=== PATIENT | male | born 1980 | race Caucasian/White ===

== ENCOUNTER 2020-11-20 15:59 | Observation (INO) | payer BC, OTHER ==
[2020-11-20] MEDS ORDERED: PROTONIX 40 MG IV IV ONE ×2 (16:16→16:19)
[2020-11-20] MEDS ORDERED: MORPHINE SULFATE 4 MG INJ IV ONE (16:16)
[2020-11-20] MEDS ORDERED: Sodium Chloride 0.9% 1000 ML 1,000 ML IV STA (16:16)
[2020-11-20] MEDS ORDERED: Zofran 4 MG/2 ML VIAL IV ONE (16:16)
[2020-11-20] MEDS ORDERED: Zofran 4 MG/2 ML VIAL ONE (16:19)
[2020-11-20] MEDS ORDERED: MORPHINE SULFATE 4 MG INJ ONE (16:19)
[2020-11-20] MEDS ORDERED: Sodium Chloride 0.9% 1000 ML 1,000 ML ONE (16:19)
--- NOTE | 2020-11-20 16:22 | ERPHSYRPT ---
- History of Present Illness Time Seen by Provider: 11/20/20 16:04 Historian: patient Exam Limitations: no limitations Physician History: 40 years old male with history of GERD not on any medications tobacco abuse presented in the ER with sudden onset upper abdominal pain moderate to severe sharp and now having generalized pain with nausea and multiple episodes of nonp rojectile, nonbilious vomiting without hematemesis. Denies any constipation or diarrhea no fever or chills reported. Timing/Duration: today, constant, sudden, worse Activities at Onset: rest Quality: sharpness Abdominal Pain Onset Location: generalized abdomen Pain Radiation: no radiation Severity of Pain-Max: severe Severity of Pain-Current: severe Modifying Factors: Improves With: rest. Worsens With: movement, palpation, vomiting Associated Symptoms: nausea, vomiting Previous symptoms: no prior history Allergies/Adverse Reactions: No Known Drug Allergies Allergy (Unverified 11/13/14 08:43) Home Medications: armodafiniL [Armodafinil] 200 mg PO DAILY 11/20/20 [History] Hx Tetanus, Diphtheria Vaccination/Date Given: Yes (up to date) Hx Influenza Vaccination/Date Given: No Hx Pneumococcal Vaccination/Date Given: No - Review of Systems Constitutional: No Symptoms Eyes: No Symptoms Ears, Nose, & Throat: No Symptoms Respiratory: No Symptoms Cardiac: No Symptoms Abdominal/Gastrointestinal: Abdominal Pain, Nausea, Vomiting Genitourinary Symptoms: No Symptoms Musculoskeletal: No Symptoms Skin: No Symptoms Neurological: No Symptoms Psychological: No Symptoms Endocrine: No Symptoms Hematologic/Lymphatic: No Symptoms Immunological/Allergic: No Symptoms - Past Medical History Pertinent Past Medical History: Yes Musculoskeletal History: Other (See history of present illness) GI Medical History: GERD - Past Surgical History Past Surgical History: Yes Gastrointestinal: Appendectomy Musculoskeletal: Orthopedic Surgery - Social History Smoking Status: Current every day smoker How long have you smoked: 15 Exposure to second hand smoke: Yes Drug Use: none Patient Lives Alone: No Significant Family History: no pertinent family hx - Nursing Vital Signs Nursing Vital Signs: Initial Vital Signs Temperature 97.6 F 11/20/20 16:17 Pulse Rate 91 H 11/20/20 16:17 Respiratory Rate 16 11/20/20 16:17 Blood Pressure 143/107 11/20/20 16:17 O2 Sat by Pulse Oximetry 98 11/20/20 16:17 Pain Scale Pain Intensity 10 - Physical Exam General Appearance: no apparent distress, alert Eye Exam: PERRL/EOMI, eyes nml inspection Ears, Nose, Throat Exam: normal ENT inspection, pharynx normal Neck Exam: normal inspection, non-tender, supple, full range of motion Respiratory Exam: normal breath sounds, lungs clear Cardiovascular Exam: regular rate/rhythm, normal heart sounds Gastrointestinal/Abdomen Exam: soft, normal bowel sounds, tenderness (Generalized with guarding without rebound) Back Exam: normal inspection, normal range of motion Extremity Exam: normal inspection, normal range of motion, pelvis stable Neurologic Exam: alert, oriented x 3, cooperative Skin Exam: normal color SpO2 Interpretation: normal SpO2: 98 O2 Delivery: Room Air Ordered Tests: Medication Summary Generic Name Dose Route Start Last Admin Trade Name Freq PRN Reason Stop Dose Admin Acetaminophen 650 mg 11/21/20 08:31 11/21/20 09:11 Tylenol 325 Mg PO 12/21/20 08:30 650 mg Q6H PRN PRN Administration PAIN AND/OR FEVER Hydrocodone Bitart/Acetaminophen 1 tab 11/21/20 21:14 11/22/20 12:42 [place] 5/325 Mg PO 11/26/20 21:13 1 tab Q4H PRN PRN Administration PAIN Potassium Chloride/Dextrose/Sod Cl 1,000 mls @ 90 mls/hr 11/21/20 21:30 11/21/20 22:27 D5w/0.45ns W/ 20meq Kcl 1000 Ml IV 12/21/20 21:29 90 mls/hr .Q11H7M JOSHUA Administration Cefoxitin Sodium 1 g in 50 mls @ 100 mls/hr 11/21/20 22:00 11/22/20 05:06 Mefoxin 1 Gm/ D5w 50 Ml IV 11/22/20 14:29 100 mls/hr Q8H JOSHUA Administration Miscellaneous Information 1 each 11/22/20 07:30 Medication Intervention PO 12/22/20 07:29 .RN TO CHECK ON JOSHUA Morphine Sulfate 2 mg 11/21/20 21:11 11/22/20 06:13 Morphine Sulfate 2 Mg Inj IV 11/26/20 21:10 2 mg Q2H PRN PRN Administration PAIN Ondansetron HCl 4 mg 11/20/20 20:43 Zofran 4 Mg/2 Ml Vial IV 12/20/20 20:42 Q6H PRN PRN NAUSEA/VOMITING Discontinued Medications Generic Name Dose Route Start Last Admin Trade Name Freq PRN Reason Stop Dose Admin Bupivacaine HCl Confirm 11/21/20 17:42 Sensorcaine 0.25% 10 Ml Administered 11/21/20 17:43 Dose 10 ml .ROUTE .STK-MED ONE Dexamethasone Sodium Phosphate Confirm 11/21/20 17:57 Decadron 4 Mg Inj Administered 11/21/20 17:58 Dose 8 mg .ROUTE .STK-MED ONE Fentanyl Citrate Confirm 11/21/20 17:03 Sublimaze 100 Mcg/2 Ml Administered 11/21/20 17:04 Dose 100 mcg .ROUTE .STK-MED ONE Hydromorphone HCl Confirm 11/21/20 18:59 Hydromorphone 1 Mg/Ml Injection Administered 11/21/20 19:00 Dose 1 mg .ROUTE .STK-MED ONE Sodium Chloride 1,000 mls @ 999 mls/hr 11/20/20 16:16 11/20/20 17:21 Sodium Chloride 0.9% 1000 Ml IV 11/20/20 17:16 Infused .Q1H1M STA Infusion Sodium Chloride Confirm 11/20/20 16:19 Sodium Chloride 0.9% 1000 Ml Administered 11/20/20 16:20 Dose 1,000 mls @ ud .ROUTE .STK-MED ONE Piperacillin Sod/Tazobactam 100 mls @ 200 mls/hr 11/20/20 18:50 11/20/20 19:02 Sod 3.375 gm/ Sodium Chloride IV 11/20/20 19:19 200 mls/hr STAT ONE Administration Sodium Chloride Confirm 11/20/20 19:00 Sodium Chloride 100ml Mini-Bag Plus Administered 11/20/20 19:01 Dose 100 mls @ ud IV .STK-MED ONE Potassium Chloride/Sodium Chloride 1,000 mls @ 125 mls/hr 11/20/20 20:43 11/21/20 07:31 Sodium Chloride 0.9% W/ 20 Meq Kcl/Liter IV 12/20/20 20:42 125 mls/hr .Q8H JOSHUA Administration Piperacillin Sod/Tazobactam 100 mls @ 200 mls/hr 11/21/20 00:00 11/22/20 06:05 Sod 3.375 gm/ Sodium Chloride IV 11/24/20 00:00 200 mls/hr Q6HT JOSHUA Administration Sodium Chloride Confirm 11/21/20 00:23 Sodium Chloride 100ml Mini-Bag Plus Administered 11/21/20 00:24 Dose 100 mls @ ud IV .STK-MED ONE Sodium Chloride Confirm 11/21/20 05:16 Sodium Chloride 100ml Mini-Bag Plus Administered 11/21/20 05:17 Dose 100 mls @ ud IV .STK-MED ONE Lactated Ringer's 1,000 mls @ 50 mls/hr 11/21/20 15:00 11/21/20 15:11 Lactated Ringers IV 11/22/20 00:06 50 mls/hr .Q20H JOSHUA Administration Cefoxitin Sodium 2 gm in 50 mls @ 50 mls/hr 11/21/20 16:00 11/21/20 22:27 Mefoxin 2 Gm Premix IV 11/24/20 15:59 50 mls/hr ONCALLTOOR JOSHUA Administration Lactated Ringer's Confirm 11/21/20 17:43 Lactated Ringers Administered 11/21/20 17:44 Dose 1,000 mls @ ud IV .STK-MED ONE Ketorolac Tromethamine Confirm 11/21/20 18:52 Toradol 30 Mg Injection Administered 11/21/20 18:53 Dose 30 mg .ROUTE .STK-MED ONE Ketorolac Tromethamine Confirm 11/21/20 19:14 Toradol 30 Mg Injection Administered 11/21/20 19:15 Dose 30 mg .ROUTE .STK-MED ONE Lidocaine HCl Confirm 11/21/20 17:03 Xylocaine-Mpf 2% 5 Ml Vial Administered 11/21/20 17:04 Dose 5 ml .ROUTE .STK-MED ONE Morphine Sulfate 4 mg 11/20/20 16:16 11/20/20 16:24 Morphine Sulfate 4 Mg Inj IV 11/20/20 16:17 4 mg STAT ONE Administration Morphine Sulfate Confirm 11/20/20 16:19 Morphine Sulfate 4 Mg Inj Administered 11/20/20 16:20 Dose 4 mg .ROUTE .STK-MED ONE Morphine Sulfate 4 mg 11/20/20 20:43 11/22/20 00:43 Morphine Sulfate 4 Mg Inj IV 11/25/20 20:42 4 mg Q4H PRN PRN Administration PAIN Morphine Sulfate Confirm 11/21/20 18:59 Morphine Sulfate 10 Mg/Ml Administered 11/21/20 19:00 Dose 10 mg .ROUTE .STK-MED ONE Ondansetron HCl 4 mg 11/20/20 16:16 11/20/20 16:22 Zofran 4 Mg/2 Ml Vial IV 11/20/20 16:17 4 mg STAT ONE Administration Ondansetron HCl Confirm 11/20/20 16:19 Zofran 4 Mg/2 Ml Vial Administered 11/20/20 16:20 Dose 4 mg .ROUTE .STK-MED ONE Ondansetron HCl Confirm 11/21/20 17:57 Zofran 4 Mg/2 Ml Vial Administered 11/21/20 17:58 Dose 4 mg .ROUTE .STK-MED ONE Pantoprazole Sodium 40 mg 11/20/20 16:16 11/20/20 16:25 Protonix 40 Mg Iv IV 11/20/20 16:17 40 mg STAT ONE Administration Pantoprazole Sodium Confirm 11/20/20 16:19 Protonix 40 Mg Iv Administered 11/20/20 16:20 Dose 40 mg IV .STK-MED ONE Piperacillin Sod/Tazobactam Sod Confirm 11/20/20 19:00 Zosyn 3.375 Gm Vial Administered 11/20/20 19:01 Dose 3.375 gm IV .STK-MED ONE Piperacillin Sod/Tazobactam Sod Confirm 11/21/20 00:23 Zosyn 3.375 Gm Vial Administered 11/21/20 00:24 Dose 3.375 gm IV .STK-MED ONE Piperacillin Sod/Tazobactam Sod Confirm 11/21/20 05:16 Zosyn 3.375 Gm Vial Administered 11/21/20 05:17 Dose 3.375 gm IV .STK-MED ONE Prochlorperazine Edisylate Confirm 11/21/20 19:14 Compazine 10 Mg/2 Ml Administered 11/21/20 19:15 Dose 10 mg .ROUTE .STK-MED ONE Propofol Confirm 11/21/20 17:03 Diprivan 200 Mg/20 Ml Administered 11/21/20 17:04 Dose 200 mg IV .STK-MED ONE Rocuronium [place] Confirm 11/21/20 17:03 Zemuron 100 Mg/10 Ml Administered 11/21/20 17:04 Dose 40 mg .ROUTE .STK-MED ONE Rocuronium [place] Confirm 11/21/20 18:34 Zemuron 100 Mg/10 Ml Administered 11/21/20 18:35 Dose 30 mg .ROUTE .STK-MED ONE Sugammadex Sodium Confirm 11/21/20 18:39 [place] 200mg/2ml Administered 11/21/20 18:40 Dose 200 mg IV .STK-MED ONE Lab/Rad Data: Laboratory Result Diagrams 11/20/20 16:34 11/20/20 16:34 Laboratory Results 11/20/20 11/20/20 11/20/20 Range/Units 19:20 19:20 18:28 WBC (4.0-10.5) K/mm3 RBC (4.1-5.6) M/mm3 Hgb (12.5-18.0) gm/dl Hct (42-50) % MCV (78-100) fl MCH (26-32) pg MCHC (32-36) g/dl RDW (11.5-14.0) % Plt Count (150-450) K/mm3 MPV (7.5-11.0) fl Gran % (36.0-66.0) % Eos # (Auto) (0-0.5) Absolute Lymphs (auto) (1.0-4.6) Absolute Monos (auto) (0.0-1.3) Lymphocytes % (24.0-44.0) % Monocytes % (0.0-12.0) % Eosinophils % (0.00-5.0) % Basophils % (0.0-0.4) % Absolute Granulocytes (1.4-6.9) Basophils # (0-0.4) Sodium (137-145) mmol/L Potassium (3.5-5.1) mmol/L Chloride (98-107) mmol/L Carbon Dioxide (22-30) mmol/L Anion Gap (5-15) MEQ/L BUN (9-20) mg/dL Creatinine (0.66-1.25) mg/dL Estimated GFR ML/MIN Glucose (74-106) mg/dL Calcium (8.4-10.2) mg/dL Total Bilirubin (0.2-1.3) mg/dL AST (17-59) U/L ALT (0-50) U/L Alkaline Phosphatase (38-126) U/L Troponin I < 0.012 (0.000-0.034) ng/mL Serum Total Protein (6.3-8.2) g/dL Albumin (3.5-5.0) g/dL Lipase (23-300) U/L Urine Color YELLOW (YELLOW) Urine Appearance CLEAR (CLEAR) Urine pH 5.0 (5-6) Ur Specific [place] >1.060 (1.005-1.025) Urine Protein NEGATIVE (Negative) Urine Ketones NEGATIVE (NEGATIVE) Urine Blood NEGATIVE (0-5) Duncan/ul Urine Nitrite NEGATIVE (NEGATIVE) Urine Bilirubin NEGATIVE (NEGATIVE) Urine Urobilinogen NEGATIVE (0-1) mg/dL Ur Leukocyte Esterase NEGATIVE (NEGATIVE) Urine WBC (Auto) NONE (0-5) /HPF Urine RBC (Auto) NONE (0-2) /HPF U Epithel Cells (Auto) NONE (FEW) /HPF Urine Bacteria (Auto) NONE (NEGATIVE) /HPF Urine Mucus (Auto) SLIGHT (NEGATIVE) /HPF Urine Culture Reflexed NO (NO) Urine Glucose NEGATIVE (NEGATIVE) mg/dL SARS-CoV-2 (PCR) NEGATIVE (NEGATIVE) 11/20/20 11/20/20 11/20/20 Range/Units 16:34 16:34 16:34 WBC 10.1 (4.0-10.5) K/mm3 RBC 4.84 (4.1-5.6) M/mm3 Hgb 16.5 (12.5-18.0) gm/dl Hct 46.6 (42-50) % MCV 96.3 (78-100) fl MCH 34.1 H (26-32) pg MCHC 35.4 (32-36) g/dl RDW 13.3 (11.5-14.0) % Plt Count 247 (150-450) K/mm3 MPV 10.0 (7.5-11.0) fl Gran % 71.1 H (36.0-66.0) % Eos # (Auto) 0.28 (0-0.5) Absolute Lymphs (auto) 2.03 (1.0-4.6) Absolute Monos (auto) 0.57 (0.0-1.3) Lymphocytes % 20.1 L (24.0-44.0) % Monocytes % 5.7 (0.0-12.0) % Eosinophils % 2.8 (0.00-5.0) % Basophils % 0.3 (0.0-0.4) % Absolute Granulocytes 7.17 H (1.4-6.9) Basophils # 0.03 (0-0.4) Sodium 142 (137-145) mmol/L Potassium 4.3 (3.5-5.1) mmol/L Chloride 112 H (98-107) mmol/L Carbon Dioxide 20 L (22-30) mmol/L Anion Gap 13.9 (5-15) MEQ/L BUN 12 (9-20) mg/dL Creatinine 0.75 (0.66-1.25) mg/dL Estimated GFR > 60.0 ML/MIN Glucose 120 H (74-106) mg/dL Calcium 9.4 (8.4-10.2) mg/dL Total Bilirubin 0.50 (0.2-1.3) mg/dL AST 29 (17-59) U/L ALT 29 (0-50) U/L Alkaline Phosphatase 59 (38-126) U/L Troponin I < 0.012 (0.000-0.034) ng/mL Serum Total Protein 7.6 (6.3-8.2) g/dL Albumin 4.7 (3.5-5.0) g/dL Lipase 190 (23-300) U/L Urine Color (YELLOW) Urine Appearance (CLEAR) Urine pH (5-6) Ur Specific [place] (1.005-1.025) Urine Protein (Negative) Urine Ketones (NEGATIVE) Urine Blood (0-5) [place]/ul Urine Nitrite (NEGATIVE) Urine Bilirubin (NEGATIVE) Urine Urobilinogen (0-1) mg/dL Ur Leukocyte Esterase (NEGATIVE) Urine WBC (Auto) (0-5) /HPF Urine RBC (Auto) (0-2) /HPF U Epithel Cells (Auto) (FEW) /HPF Urine Bacteria (Auto) (NEGATIVE) /HPF Urine Mucus (Auto) (NEGATIVE) /HPF Urine Culture Reflexed (NO) Urine Glucose (NEGATIVE) mg/dL SARS-CoV-2 (PCR) (NEGATIVE) - Progress Progress: improved, pain not gone completely, re-examined Progress Note: 11/20/20 18:17 40 years old is evaluated for abdominal pain, given fluid bolus and morphine, reevaluation feeling better. Lab work grossly unremarkable. CT showed 1.4 cm stone at the neck of gallbladder without any significant wall thickening/pericholecystic fluid and also has questionable partial small bowel obstruction. Will talk to general surgery artificial insemination technician and patient would be admitted as per their recommendations 11/20/20 18:45 d/w Dr. Volodymyr Jenkins general surgery, reviewed history, lab and CT findings, recommended n.p.o., holding off on NG tube for now. Obtaining ultrasound in the morning and will give dose of Zosyn. Patient discussed with Dr. Axel sherwood, reviewed history and general surgery recommendations and patient is accepted for admission. Discussed with Dr.: Marinelli Counseled pt/family regarding: lab results, diagnosis, rad results - Departure Clinical Impression: Acute cholecystitis, Partial small bowel obstruction Condition: Stable Critical Care Time: No
[2020-11-20 16:50] LABS: ALBUMIN 4.7 g/dL (3.5-5.0); ALKALINE PHOSPHATASE 59 U/L (38-126); ANION GAP 13.9 MEQ/L (5-15); BLOOD UREA NITROGEN 12 mg/dL (9-20); CHLORIDE 112 mmol/L (98-107); Calcium 9.4 mg/dL (8.4-10.2); Carbon Dioxide 20 mmol/L (22-30); Creatinine 1 0.75 mg/dL (0.66-1.25); EST GLOMERULAR FILTRATION RATE > 60.0 ML/MIN; Glucose 120 mg/dL (74-106); LIPASE 190 U/L (23-300); Potassium 4.3 mmol/L (3.5-5.1); SGOT/AST 29 U/L (17-59); SGPT/ALT 29 U/L (0-50); SODIUM 142 mmol/L (137-145); Total Protein 7.6 g/dL (6.3-8.2)
[2020-11-20 16:52] LABS: Absolute Neutrophil Ct (ANC) 7.17 (1.4-6.9); BASOPHIL % 0.3 % (0.0-0.4); Basophil (Absolute #) 0.03 (0-0.4); Eosinophil % 2.8 % (0.00-5.0); Eosinophil (Absolute #) 0.28 (0-0.5); Hematocrit 46.6 % (42-50); Hemoglobin 16.5 gm/dl (12.5-18.0); Lymphocyte (Absolute #) 2.03 (1.0-4.6); Lymphocytes % 20.1 % (24.0-44.0); Mean Cell Volume 96.3 fl (78-100); Mean Corpuscular Hemoglobin 34.1 pg (26-32); Mean Corpuscular Hgb Concent. 35.4 g/dl (32-36); Monocyte (Absolute #) 0.57 (0.0-1.3); Monocytes % 5.7 % (0.0-12.0); Neutrophil % 71.1 % (36.0-66.0); Platelet Count 247 K/mm3 (150-450); Red Blood Count 4.84 M/mm3 (4.1-5.6); Red Cell Distribution Width 13.3 % (11.5-14.0); White Blood Count 10.1 K/mm3 (4.0-10.5)
--- NOTE | 2020-11-20 18:06 | XRAY ---
Exam: CT of the abdomen and pelvis with IV contrast from 11/20/2020. CTDI: 5.30 mGy Comparison: None. Indication: 40-year-old male with lower mid to left-sided abdominal pain and left flank pain; some vomiting. Also, upper abdominal pain. The patient gives a history of prior appendectomy. Technique: Post-IV contrast axial images were obtained through the abdomen and pelvis during automated injection of 80 cc of Isovue-370 contrast material. Reconstructed coronal and sagittal images were created and reviewed. Findings: The visualized lung bases reveal minimal posterior dependent atelectatic changes at the right lung base. Otherwise, the lung bases appear clear. The heart size is normal. The liver appears of normal size and uniform attenuation. No hepatic mass or intrahepatic biliary duct distention is seen. The gallbladder is distended and there appears to be a calcium rimmed density within the gallbladder neck which could represent an impacted gallstone. Again, I do not see definite biliary duct distention. Correlate clinically. This calcium rimmed intraluminal density is best seen on axial image #23, coronal image #71, and sagittal image #81. It measures about 1.4 cm in width. The spleen appears of unremarkable size and reveals no focal mass. The pancreas and adrenal glands appear unremarkable. The kidneys appear of normal size and reveal no calculi or hydronephrosis. Both kidneys function on delayed images. No solid renal mass is seen. The ureters appear of normal diameter and reveal no ureterolith. No urinary bladder stone is seen. The abdominal aorta is of normal diameter. No abdominal aortic aneurysm or abnormal retroperitoneal lymphadenopathy is seen. A few very small nonspecific periaortic lymph nodes are seen. There is no free intraperitoneal air or bowel containing ventral hernia. There is minimal protrusion of intraperitoneal fat into the subcutaneous fat at the level of the umbilicus in midline sagittal image #94. The appendix is not seen consistent with the patient's history of prior appendectomy. Scattered stool is seen throughout the colon. There is a suggestion of some minimal diverticulosis within the proximal sigmoid colon without evidence of diverticulitis. There is either a pill density or calcification within the ascending colon. There also appears to be a pill or calcification within the splenic flexure on axial image #21 and the proximal descending colon on axial image #28. In addition, the small bowel appears mildly abnormal. There are a few mildly dilated fluid-filled small bowel loops within the lower abdomen measuring up to a maximum of 2.7 cm in diameter. Other collapsed small bowel loops are seen within the lower abdomen and upper pelvis measuring only about 1.0 cm in diameter. Furthermore, I see some feces-like material within the small bowel. For example, see coronal image #33. The small bowel feces sign has been described with subacute or low grade small bowel obstruction. Consider adhesions in this case. Again, I see no evidence of free intraperitoneal air. The urinary bladder appears grossly unremarkable. The seminal vesicles appear symmetric. The prostate gland measures a maximum of 5.0 cm in width and 3.2 cm in AP dimension on axial image #84. No free fluid is seen within the pelvis. The skeleton reveals no acute fracture or aggressive bone lesion. There appear to be 6 [id number] lumbar vertebra with L6 representing a transitional vertebra which is fused with the upper left side of the sacrum. Mild facet joint arthropathy is seen at L5L6 and L6S1 on the right. There appears to be moderate loss of the anterior vertebral body height of L1 which appears to be chronic. Mild kyphosis is seen centered at L1. Some anterior vertebral endplate spurs are seen within the upper and mid lumbar spine. Impression: 1. There appears to be a 1.4 cm in diameter calcium rimmed stone within the gallbladder neck which may be impacted. However, I do not see any significant gallbladder distention or biliary duct obstruction. 2. Abnormal lower abdominal and upper pelvic small bowel worrisome for subacute or early low-grade small bowel obstruction. See above. Consider adhesions. The patient is status post appendectomy. 3. Minimal proximal sigmoid colon diverticulosis without evidence of acute diverticulitis. 4. No other acute process is seen within the abdomen or pelvis. 5. Skeletal findings, as discussed above.
[2020-11-20] MEDS ORDERED: Zosyn 3.375 GM Vial 3.375 GM in Sodium Chloride 100ML MINI-BAG PLUS 100 ML IV ONE (18:50)
[2020-11-20] MEDS ORDERED: Zosyn 3.375 GM Vial IV ONE (19:00)
[2020-11-20] MEDS ORDERED: Sodium Chloride 100ML MINI-BAG PLUS 100 ML IV ONE (19:00)
[2020-11-20 19:42] LABS: Appearance CLEAR (CLEAR); Bilirubin NEGATIVE (NEGATIVE); Blood NEGATIVE Ery/ul (0-5); Glucose NEGATIVE (NEGATIVE); Ketones NEGATIVE (NEGATIVE); Leukocyte Esterase NEGATIVE (NEGATIVE); Mucus SLIGHT /HPF (NEGATIVE); Nitrite NEGATIVE (NEGATIVE); Protein,Urine Dip NEGATIVE (Negative); Specific Gravity >1.060 (1.005-1.025); Urobilinogen NEGATIVE mg/dL (0-1)
[2020-11-20] MEDS ORDERED: Zofran 4 MG/2 ML VIAL IV PRN (20:43)
[2020-11-20] MEDS: Sodium Chloride 0.9% W/ 20 mEq KCl/LITER 1,000 ML IV SCH (21:45)
[2020-11-20] MEDS: MORPHINE SULFATE 4 MG INJ IV PRN (22:31)
[2020-11-21] MEDS ORDERED: Sodium Chloride 100ML MINI-BAG PLUS 100 ML IV ONE ×2 (00:23→05:16)
[2020-11-21] MEDS ORDERED: Zosyn 3.375 GM Vial IV ONE ×2 (00:23→05:16)
[2020-11-21] MEDS: Zosyn 3.375 GM Vial 3.375 GM in Sodium Chloride 100ML MINI-BAG PLUS 100 ML IV SCH ×3 (00:27→12:17)
[2020-11-21 05:44] LABS: Absolute Neutrophil Ct (ANC) 5.15 (1.4-6.9); BASOPHIL % 0.2 % (0.0-0.4); Basophil (Absolute #) 0.02 (0-0.4); Eosinophil % 2.7 % (0.00-5.0); Eosinophil (Absolute #) 0.24 (0-0.5); Hematocrit 42.5 % (42-50); Hemoglobin 14.5 gm/dl (12.5-18.0); Lymphocyte (Absolute #) 2.82 (1.0-4.6); Lymphocytes % 31.9 % (24.0-44.0); Mean Cell Volume 98.6 fl (78-100); Mean Corpuscular Hemoglobin 33.6 pg (26-32); Mean Corpuscular Hgb Concent. 34.1 g/dl (32-36); Mean Platelet Volume 9.8 fl (7.5-11.0); Monocyte (Absolute #) 0.61 (0.0-1.3); Monocytes % 6.9 % (0.0-12.0); Neutrophil % 58.3 % (36.0-66.0); Platelet Count 201 K/mm3 (150-450); Red Blood Count 4.31 M/mm3 (4.1-5.6); Red Cell Distribution Width 13.6 % (11.5-14.0); White Blood Count 8.8 K/mm3 (4.0-10.5)
[2020-11-21 05:48] LABS: ALBUMIN 3.5 g/dL (3.5-5.0); ALKALINE PHOSPHATASE 46 U/L (38-126); ANION GAP 8.7 MEQ/L (5-15); BLOOD UREA NITROGEN 11 mg/dL (9-20); CHLORIDE 110 mmol/L (98-107); Calcium 8.4 mg/dL (8.4-10.2); Carbon Dioxide 25 mmol/L (22-30); Creatinine 1 0.76 mg/dL (0.66-1.25); EST GLOMERULAR FILTRATION RATE > 60.0 ML/MIN; Glucose 85 mg/dL (74-106); Potassium 4.7 mmol/L (3.5-5.1); SGOT/AST 26 U/L (17-59); SGPT/ALT 24 U/L (0-50); SODIUM 139 mmol/L (137-145)
[2020-11-21] MEDS: MORPHINE SULFATE 4 MG INJ IV PRN ×2 (06:35→12:15)
[2020-11-21] MEDS: Sodium Chloride 0.9% W/ 20 mEq KCl/LITER 1,000 ML IV SCH (07:31)
[2020-11-21] MEDS ORDERED: TYLENOL 325 MG PO PRN (08:31)
--- NOTE | 2020-11-21 09:15 | HP ---
CHIEF COMPLAINT: Abdominal pain. HISTORY OF PRESENT ILLNESS: The patient is a 40-year-old white male patient who reports that over the past several days he had been having problems with what he thought was heartburn kind of pain. He tried Maalox and Tums without relief. He also tried Pepto-Bismol which likewise was not much relief. He reports that he had it the most in the morning but it did get better somewhat as he was work. However, on the morning of admission, the patient noticed increasing abdominal pain to the point where he could not tolerate it any longer and brought himself into the emergency room for evaluation and management. 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 He otherwise had previous appendectomy and orthopedic surgery. He is otherwise a healthy fellow who has no usual medical problems. HOME MEDICATIONS: Armodafinil 200 mg daily. ALLERGIES: NKDA. SOCIAL HISTORY: He has been a smoker for the past 15 years. PHYSICAL EXAMINATION: The patient's evaluation in the emergency room showed temperature 97.6F, pulse 91, respiratory rate 16 and blood pressure 143/107. O2 saturations was 98%. HEENT: Normocephalic, atraumatic. Pupils equal round reactive to light. Extraocular movements intact. Oropharynx is pink and moist. NECK: Supple without lymphadenopathy, thyromegaly or JVD. CHEST: Clear to auscultation. HEART: Regular rate and rhythm without murmurs, rubs or gallops. ABDOMEN: Soft with tenderness with guarding but no rebound. The patient otherwise had no abdominal masses. EXTREMITIES: Without cyanosis, clubbing or edema. NEUROLOGIC: Alert and oriented x3 with no focal deficits. LAB DATA AND TESTS: The patient's evaluations included laboratory studies which revealed CMP essentially normal, nonfasting sugar at 120, lipase was normal. Liver enzymes were normal. Bilirubin was not increased. The patient had a troponin of 0.012. COVID test was negative. UA was normal. His CBC showed a white count 10.1, hemoglobin 16.5, PLT count 247,000. His evaluation from radiology did show a 1.4 cm diameter what appears to be stone in the gallbladder neck which may be impacted. Otherwise there was no gallbladder distention or biliary duct obstruction. There appeared to be possible issues with early small bowel obstruction. ASSESSMENT: The patient was admitted to the hospital on IV fluids and antibiotics. Surgical consultation will be obtained with probable laparoscopic cholecystectomy. Otherwise the patient is being maintained NPO with IV fluids and PRN pain medications.
--- NOTE | 2020-11-21 11:40 | XRAY ---
Exam: Gallbladder ultrasound from 11/21/2020. Comparison: CT of the abdomen and pelvis with IV contrast from 11/20/2020. Indication: 40-year-old male with cholecystitis. Findings: Transverse images of the pancreas reveal poor visualization, likely due to overlying bowel gas. However, the pancreas appeared unremarkable on yesterday's CT of the abdomen/pelvis. The liver appears of unremarkable size with the right hepatic lobe measuring 16.65 cm in greatest length. Color blood flow within the portal vein toward the liver is seen. No focal hepatic mass or intrahepatic biliary duct distention is seen. The gallbladder is mildly distended and it reveals at least one gallstone measuring up to 1.4 cm in diameter. This means the stone seen on yesterday's CT within the gallbladder neck is not impacted. However, the gallbladder wall is thickened measuring up to 4.4 mm in diameter. This is consistent with cholecystitis. No pericholecystic edema or fluid is seen. The proximal common bile duct measures about 2 mm which is normal. The right kidney measures 9.95 cm in length and reveals no mass or hydronephrosis. Impression: 1. Cholelithiasis with a thickened gallbladder wall suggestive of concomitant cholecystitis. 2. No biliary duct distention is seen.
[2020-11-21] MEDS ORDERED: Lactated Ringers 1,000 ML IV SCH (15:00)
[2020-11-21] MEDS: MEFOXIN 2 GM PREMIX** 2 GM/50 ML ML IV SCH ×2 (15:15→22:27)
[2020-11-21] MEDS ORDERED: Xylocaine-Mpf 2% 5 Ml Vial ONE (17:03)
[2020-11-21] MEDS ORDERED: Zemuron 100 MG/10 ML ONE ×2 (17:03→18:34)
[2020-11-21] MEDS ORDERED: SUBLIMAZE 100 MCG/2 ML ONE (17:03)
[2020-11-21] MEDS ORDERED: DIPRIVAN 200 MG/20 ML IV ONE (17:03)
[2020-11-21] MEDS ORDERED: Sensorcaine 0.25% 10 ML ONE (17:42)
[2020-11-21] MEDS ORDERED: Lactated Ringers 1,000 ML IV ONE (17:43)
[2020-11-21] MEDS ORDERED: Decadron 4 MG INJ ONE (17:57)
[2020-11-21] MEDS ORDERED: Zofran 4 MG/2 ML VIAL ONE (17:57)
[2020-11-21] MEDS ORDERED: BRIDION 200MG/2ML IV ONE (18:39)
[2020-11-21] MEDS ORDERED: TORAdol 30 mg Injection ONE ×2 (18:52→19:14)
[2020-11-21] MEDS ORDERED: MORPHINE SULFATE 10 MG/ML ONE (18:59)
[2020-11-21] MEDS ORDERED: Hydromorphone 1 mg/ml Injection ONE (18:59)
[2020-11-21] MEDS ORDERED: Compazine 10 MG/2 ML ONE (19:14)
[2020-11-21] MEDS ORDERED: MORPHINE SULFATE 2 MG INJ IV PRN (21:11)
[2020-11-21] MEDS ORDERED: NORCO 5/325 MG PO PRN (21:14)
[2020-11-21] MEDS ORDERED: D5W/0.45NS W/ 20mEq KCl 1000 ML 1,000 ML IV SCH (21:30)
[2020-11-21] MEDS: MEFOXIN 1 Gm/ D5W 50 Ml** 1 G/50 ML ML IV SCH (22:30)
[2020-11-22] MEDS: Zosyn 3.375 GM Vial 3.375 GM in Sodium Chloride 100ML MINI-BAG PLUS 100 ML IV SCH ×3 (00:07→06:05)
[2020-11-22] MEDS: MORPHINE SULFATE 4 MG INJ IV PRN (00:43)
[2020-11-22] MEDS: MEFOXIN 1 Gm/ D5W 50 Ml** 1 G/50 ML ML IV SCH (05:06)
[2020-11-22 06:32] LABS: Absolute Neutrophil Ct (ANC) 10.75 (1.4-6.9); BASOPHIL % 0.1 % (0.0-0.4); Basophil (Absolute #) 0.01 (0-0.4); Eosinophil (Absolute #) 0 (0-0.5); Lymphocytes % 5.2 % (24.0-44.0); Mean Cell Volume 96.2 fl (78-100); Mean Corpuscular Hemoglobin 33.6 pg (26-32); Mean Corpuscular Hgb Concent. 34.9 g/dl (32-36); Mean Platelet Volume 9.9 fl (7.5-11.0); Monocyte (Absolute #) 0.29 (0.0-1.3); Monocytes % 2.5 % (0.0-12.0); Neutrophil % 92.2 % (36.0-66.0); Platelet Count 215 K/mm3 (150-450); Red Blood Count 4.47 M/mm3 (4.1-5.6); Red Cell Distribution Width 12.8 % (11.5-14.0); White Blood Count 11.7 K/mm3 (4.0-10.5)
[2020-11-22 06:47] LABS: ALBUMIN 3.9 g/dL (3.5-5.0); ALKALINE PHOSPHATASE 45 U/L (38-126); ANION GAP 12.8 MEQ/L (5-15); BLOOD UREA NITROGEN 10 mg/dL (9-20); CHLORIDE 109 mmol/L (98-107); Calcium 8.8 mg/dL (8.4-10.2); Carbon Dioxide 21 mmol/L (22-30); Creatinine 1 0.68 mg/dL (0.66-1.25); EST GLOMERULAR FILTRATION RATE > 60.0 ML/MIN; Glucose 163 mg/dL (74-106); SGOT/AST 73 U/L (17-59); SGPT/ALT 73 U/L (0-50); SODIUM 138 mmol/L (137-145); Total Protein 6.4 g/dL (6.3-8.2)
[2020-11-22] MEDS ORDERED: MEDICATION INTERVENTION PO SCH (07:30)
[2020-11-22] MEDS ORDERED: ARMODAFINIL 200 MG PO SCH (10:00)
[2020-11-22 13:04] VITALS: O2SAT 98
[2020-11-22 13:13] VITALS: BP 122/64; PULSE 81
--- NOTE | 2020-11-24 14:16 | OP ---
SURGERY DATE: 11/21/2020 SURGERY TIME: 1803 PREOPERATIVE DIAGNOSIS: 1. ACUTE CHOLECYSTITIS, CHOLELITHIASIS. POSTOPERATIVE DIAGNOSIS: 1. ACUTE CHOLECYSTITIS, CHOLELITHIASIS. PROCEDURE: 1. Laparoscopic cholecystectomy. SURGEON: Amor Jenkins M.D. ANESTHESIA: General endotracheal tube. COMPLICATIONS: None. CONDITION: Stable. INDICATION: Patient with acute cholecystitis and stones. OPERATIVE PROCEDURE: Taken to surgery. General anesthetic. Routine prep and drape. Veress needle right upper quadrant. Insufflated to a pressure of 14. Four 5's. Good visualization. Cystic duct defined. Cystic artery defined. Triply Ligaclipped and transected. Gallbladder was acutely inflamed. Gallbladder rolled out of gallbladder fossa. Epigastric port was widened. The gallbladder was brought out. Two stones were extracted. The gallbladder was totally brought out. The hole closed with a hole closure device and 0 Vicryl. Skin closed with romulo. Sterile dressing applied. The patient tolerated the procedure satisfactory.
--- NOTE | 2020-12-15 12:45 | DS ---
DISCHARGE DIAGNOSIS: CHOLECYSTITIS. CONSULTANTS: Dr. Amor Jenkins operative procedure of laparoscopic cholecystectomy. HISTORY: The patient is a 40 year-old white male patient who has been having intermittent pain in his abdomen particularly in the right upper quadrant over the past several days. It had gotten better with increasing his medication for antacids but on the day of admission on 11/20/2020 developed increase in abdominal pain right upper quadrant particularly brought him to the emergency room. HOSPITAL COURSE: The patient was admitted to the medicine [facility]. Surgical consultation was obtained. The patient was taken for laparoscopic cholecystectomy the next morning. He did well postoperatively being able to be discharged home by 11/22/2020. The patient was discharged home on his same home medications with instructions to follow up with the surgeon in one week and to follow up with us in the next two weeks for follow up care. If he has any additional problems in the meantime he is to contact us or report back to the emergency room.
== END 2020-11-22 13:18 | disposition home or self-care (01) ==
LOC: ED 15:59 → MED SURG 20:31
PROVIDERS: ADMIT Family Medicine; ATTEND Family Medicine
DX: K80.00 Calculus of gallbladder with acute cholecystitis without obstruction (principal); R11.2 Nausea with vomiting, unspecified; Z79.899 Other long term (current) drug therapy; Z20.822 Contact with and (suspected) exposure to COVID-19
CPT/HCPCS: 36000; 36415; 74177; 76705; 80053; 81001; 83690; 84484; 85025; 88304; 93005; 93268; 94760; 96360; 96374; 96375; 99284; J0694; J1100; J1170; J1885; J2270; J2405; J2704; J3010; U0003; A9270-GY; G0378

== ENCOUNTER 2020-12-11 13:47 | Emergency (ER) | payer OTHER ==
[2020-12-11 14:43] VITALS: BP 125/84; PULSE 75; O2SAT 97
[2020-12-11] MEDS ORDERED: TYLENOL 325 MG PO ONE (15:15)
[2020-12-11] MEDS ORDERED: TYLENOL 325 MG ONE (15:18)
[2020-12-11 15:38] LABS: Absolute Neutrophil Ct (ANC) 6.94 (1.4-6.9); BASOPHIL % 0.4 % (0.0-0.4); Basophil (Absolute #) 0.04 (0-0.4); Eosinophil % 7.4 % (0.00-5.0); Eosinophil (Absolute #) 0.81 (0-0.5); Hematocrit 45.7 % (42-50); Lymphocyte (Absolute #) 2.26 (1.0-4.6); Lymphocytes % 20.5 % (24.0-44.0); Mean Cell Volume 95.8 fl (78-100); Mean Corpuscular Hemoglobin 33.5 pg (26-32); Mean Platelet Volume 9.5 fl (7.5-11.0); Monocyte (Absolute #) 0.95 (0.0-1.3); Monocytes % 8.6 % (0.0-12.0); Neutrophil % 63.1 % (36.0-66.0); Platelet Count 249 K/mm3 (150-450); Red Blood Count 4.77 M/mm3 (4.1-5.6); Red Cell Distribution Width 13.5 % (11.5-14.0)
[2020-12-11 15:50] LABS: ALBUMIN 4.6 g/dL (3.5-5.0); ALKALINE PHOSPHATASE 61 U/L (38-126); ANION GAP 12.7 MEQ/L (5-15); BLOOD UREA NITROGEN 12 mg/dL (9-20); CHLORIDE 106 mmol/L (98-107); Calcium 9.6 mg/dL (8.4-10.2); Carbon Dioxide 26 mmol/L (22-30); Creatinine 1 0.73 mg/dL (0.66-1.25); EST GLOMERULAR FILTRATION RATE > 60.0 ML/MIN; Glucose 83 mg/dL (74-106); Potassium 4.1 mmol/L (3.5-5.1); SGOT/AST 33 U/L (17-59); SGPT/ALT 34 U/L (0-50); SODIUM 140 mmol/L (137-145); Total Protein 7.6 g/dL (6.3-8.2)
--- NOTE | 2020-12-11 16:28 | XRAY ---
Indication: Left upper extremity venous thrombosis following IV. Two-dimensional sonogram and color Doppler imaging of the major venous vessels of the left upper extremity performed. Comparison: None Left forearm demonstrates a superficial occluding venous thrombus from the level of the elbow to the wrist. No thrombus seen in the remaining visualized internal jugular, subclavian, axillary, cephalic, basilic, brachial, radial, and ulnar veins all demonstrate normal compressibility and normal venous waveforms. Impression: Superficial occluding venous thrombus throughout the forearm.
--- NOTE | 2020-12-11 16:55 | ERPHSYRPT ---
- History of Present Illness Time Seen by Provider: 12/11/20 14:40 Source: patient Exam Limitations: no limitations Patient Subjective Stated Complaint: " My left arm has been hot and swollen for the past 4 days. It hurts to bend it. I had surgery a couple weeks ago here with Dr. Amor Jenkins, he removed my gallbladder. I had an IV in my left hand, I'm wondering if this is from that IV." Triage Nursing Assessment: Pt presents to ER with complaints of left forearm swelling, pain, and warmth to extermity. Left forearm does appear swollen and muscle is tense. Pt has some redness to hand. Skin is noted to be warm and dry. ROM and pulses intact but states has pain upon flexing arm. Pt is alert and oriented x 3. Pt denies any further complaints such as shob, cough, fever, n/v/d. Physician History: Patient is a 40-year-old male presents to our ED with complaints of swelling and warmth to his left arm. Patient is 4-day postop cholecystectomy per Dr. Amor Jenkins. Patient states an IV was put into his left arm. Over the course of the last 4 days of left arm has gotten progressively swollen. No chest pain or shortness of breath no trauma. No fever. No numbness tingling or weakness. No pain with motion of the hands wrist or elbow. Patient states his arm feels "tight". Patient is otherwise healthy. He voices no other complaints at this time. Timing/Duration: day(s) (4 days) Severity: moderate Modifying Factors: Improves With: nothing Associated Symptoms: denies symptoms Allergies/Adverse Reactions: No Known Drug Allergies Allergy (Verified 12/11/20 14:43) Home Medications: armodafiniL [Armodafinil] 200 mg PO DAILY 11/20/20 [History] Hx Tetanus, Diphtheria Vaccination/Date Given: No Hx Influenza Vaccination/Date Given: No Hx Pneumococcal Vaccination/Date Given: No Immunizations Up to Date: Yes Travel Risk - International Travel Have you traveled outside of the country in past 3 weeks: No - Coronavirus Screening Are you exhibiting any of the following symptoms?: No Close contact with a COVID-19 positive Pt in past 14-21 Days: No - Vaccine Status Have you recieved a Covid-19 vaccination: No - Review of Systems Constitutional: No Symptoms, No Fever, No Chills Eyes: No Symptoms Ears, Nose, & Throat: No Symptoms Respiratory: No Symptoms, No Cough, No Dyspnea Cardiac: No Symptoms, No Chest Pain, No Edema, No Syncope Abdominal/Gastrointestinal: No Symptoms, No Abdominal Pain, No Nausea, No Vomiting, No Diarrhea Genitourinary Symptoms: No Symptoms, No Dysuria Musculoskeletal: No Symptoms, Other (Left upper extremities neurovascular intact distally. However it is swollen versus the right. Extremities warm compartments are soft. Cap refill less than 2 seconds.), No Back Pain, No Neck Pain Skin: No Symptoms, No Rash Neurological: No Symptoms, No Dizziness, No Focal Weakness, No Sensory Changes Psychological: No Symptoms Endocrine: No Symptoms Hematologic/Lymphatic: No Symptoms Immunological/Allergic: No Symptoms All Other Systems: Reviewed and Negative - Past Medical History Pertinent Past Medical History: Yes Neurological History: No Pertinent History ENT History: No Pertinent History Cardiac History: No Pertinent History Respiratory History: No Pertinent History Endocrine Medical History: No Pertinent History Musculoskeletal History: Other GI Medical History: GERD History: No Pertinent History Psycho-Social History: No Pertinent History Male Reproductive Disorders: No Pertinent History Other Medical History: orthopedic- - Past Surgical History Past Surgical History: Yes Neuro Surgical History: No Pertinent History Cardiac: Angioplasty Respiratory: No Pertinent History Gastrointestinal: Appendectomy, Cholecystectomy Genitourinary: No Pertinent History Musculoskeletal: Orthopedic Surgery Other Surgical History: ankle/ plate pins - Social History Smoking Status: Current every day smoker How long have you smoked: 15 Exposure to second hand smoke: No Drug Use: none Patient Lives Alone: Yes Significant Family History: no pertinent family hx - Nursing Vital Signs Nursing Vital Signs: Initial Vital Signs Temperature 98.7 F 12/11/20 14:33 Pulse Rate 75 12/11/20 14:33 Respiratory Rate 16 12/11/20 14:33 Blood Pressure 125/84 12/11/20 14:33 O2 Sat by Pulse Oximetry 97 12/11/20 14:33 Pain Scale Pain Intensity 3 - Physical Exam General Appearance: no apparent distress, alert Eye Exam: PERRL/EOMI, eyes nml inspection Ears, Nose, Throat Exam: normal ENT inspection, TMs normal, pharynx normal, moist mucous membranes Neck Exam: normal inspection, non-tender, supple, full range of motion Respiratory Exam: normal breath sounds, lungs clear, airway intact, No respiratory distress Cardiovascular Exam: regular rate/rhythm, normal heart sounds, normal peripheral pulses Gastrointestinal/Abdomen Exam: soft, normal bowel sounds, No tenderness, No mass Back Exam: normal inspection, normal range of motion, No CVA tenderness, No vertebral tenderness Extremity Exam: normal inspection, normal range of motion, pelvis stable Neurologic Exam: alert, oriented x 3, cooperative, normal mood/affect, sensation nml, No motor deficits Skin Exam: normal color, warm, dry, No rash Lymphatic Exam: No adenopathy SpO2 Interpretation: normal SpO2: 97 O2 Delivery: Room Air - Course Nursing assessment & vital signs reviewed: Yes - Radiology Ultrasound Exam Venous Upper Extremity Ultrasound: tele radiology report (Superficial occluding venous thrombus from the level of the elbow to the wrist. ) Ordered Tests: Active Orders 24 hr Category Date Time Status IV Insertion STAT Care 12/11/20 15:15 Active VENOUS UNILAT/LIMITED EXTREMIT [US] Stat Exams 12/11/20 15:17 Completed CBC W DIFF Stat Lab 12/11/20 15:25 Completed CK (IN-HOUSE) [CK-Creatinine Phosphokinase] Stat Lab 12/11/20 15:25 Completed CMP Stat Lab 12/11/20 15:25 Completed Medication Summary Discontinued Medications Generic Name Dose Route Start Last Admin Trade Name Freq PRN Reason Stop Dose Admin Acetaminophen 975 mg 12/11/20 15:15 12/11/20 15:19 Acetaminophen 325 Mg Tablet PO 12/11/20 15:16 975 mg STAT ONE Administration Acetaminophen Confirm 12/11/20 15:18 Acetaminophen 325 Mg Tablet Administered 12/11/20 15:19 Dose 975 mg .ROUTE .STK-MED ONE Lab/Rad Data: Laboratory Result Diagrams 12/11/20 15:25 12/11/20 15:25 Laboratory Results 12/11/20 12/11/20 12/11/20 Range/Units 15:25 15:25 15:25 WBC 11.0 H (4.0-10.5) K/mm3 RBC 4.77 (4.1-5.6) M/mm3 Hgb 16.0 (12.5-18.0) gm/dl Hct 45.7 (42-50) % MCV 95.8 (78-100) fl MCH 33.5 H (26-32) pg MCHC 35.0 (32-36) g/dl RDW 13.5 (11.5-14.0) % Plt Count 249 (150-450) K/mm3 MPV 9.5 (7.5-11.0) fl Gran % 63.1 (36.0-66.0) % Eos # (Auto) 0.81 H (0-0.5) Absolute Lymphs (auto) 2.26 (1.0-4.6) Absolute Monos (auto) 0.95 (0.0-1.3) Lymphocytes % 20.5 L (24.0-44.0) % Monocytes % 8.6 (0.0-12.0) % Eosinophils % 7.4 H (0.00-5.0) % Basophils % 0.4 (0.0-0.4) % Absolute Granulocytes 6.94 H (1.4-6.9) Basophils # 0.04 (0-0.4) Sodium 140 (137-145) mmol/L Potassium 4.1 (3.5-5.1) mmol/L Chloride 106 (98-107) mmol/L Carbon Dioxide 26 (22-30) mmol/L Anion Gap 12.7 (5-15) MEQ/L BUN 12 (9-20) mg/dL Creatinine 0.73 (0.66-1.25) mg/dL Estimated GFR > 60.0 ML/MIN Glucose 83 (74-106) mg/dL Calcium 9.6 (8.4-10.2) mg/dL Total Bilirubin 0.70 (0.2-1.3) mg/dL AST 33 (17-59) U/L ALT 34 (0-50) U/L Alkaline Phosphatase 61 (38-126) U/L Creatine Kinase 74 (55-170) U/L Serum Total Protein 7.6 (6.3-8.2) g/dL Albumin 4.6 (3.5-5.0) g/dL - Progress Progress: improved Progress Note: Per the ultrasound patient has a superficial thrombus occluding a superficial vein from the level of the elbow to the wrist. I spoke to Dr. Emory Jenkins. Plan of care is to self administer NSAIDs warm compresses and follow-up with Dr. Amor Jenkins. Patient will call Dr. Amor Jenkins in the morning to establish a follow-up appointment. Patient understands the instructions. No indication for further work-up. Laboratory work-up otherwise essentially unremarkable. Patient has no complications or complaints regarding his gallbladder surgery. Patient states he is ready for discharge. He declined pain medication. He voices no other complaints or concerns at this time. Will discharge home. Portions of this note were created with voice recognition technology. There may be grammatical, spelling, punctuation or sound alike errors 12/11/20 17:13 Discussed with : Abe Counseled pt/family regarding: lab results, diagnosis, need for follow-up, rad results - Departure Departure Disposition: Home Clinical Impression: Superficial venous thrombosis of left arm Condition: Stable Critical Care Time: No Referrals: HERMILO DURHAM [Primary Care Provider] - Additional Instructions: Discharge/Care Plan [facility] was seen on 12/11/20 in the Emergency Room. The patient was counseled regarding Diagnosis,Lab results, Imaging studies, need for follow up and when to return to the Emergency Room. Prescriptions given: Discharge Note I have spoken with the patient and/or caregivers. I have explained the patient's condition, diagnosis and treatment plan based on the information available to me at this time. I have answered the patient's and/or caregiver's questions and addressed any concerns. The patient and/or caregivers have as good understanding of the patient's diagnosis, condition and treatment plan as can be expected at this point. The vital signs have been stable. The patient's condition is stable and appropriate for discharge from the emergency department. The patient will pursue further outpatient evaluation with the primary care physician or other designated or consulting physician as outlined in the discharge instructions. The patient and/or caregivers are agreeable to this plan of care and follow-up instructions have been explained in detail. The patient and/or caregivers have received these instruction. The patient/and or caregivers are aware that any significant change in condition or worsening of symptoms should prompt an immediate return to this or the closest emergency department or call 911.
== END 2020-12-11 17:28 | disposition home or self-care (01) ==
LOC: ED 13:47
DX: I82.612 Acute embolism and thrombosis of superficial veins of left upper extremity (principal)
CPT/HCPCS: 36000; 36415; 80053; 82550; 85025; 93971; 99284; A9270-GY

== ENCOUNTER 2020-12-15 13:13 | Observation (INO) | payer OTHER ==
[2020-12-15] MEDS ORDERED: PHARMACY DOSING REQUIRED: VANCOMYCIN IV STA (17:04)
[2020-12-15] MEDS ORDERED: PHARMACY DOSING REQUEST MC ONE (17:08)
[2020-12-15] MEDS ORDERED: VANCOCIN 1 GM VIAL*** 1 GM in Sodium Chloride 0.9% 250 ML 250 ML IV SCH (17:30)
[2020-12-15 17:36] LABS: Absolute Neutrophil Ct (ANC) 6.47 (1.4-6.9); BASOPHIL % 0.3 % (0.0-0.4); Basophil (Absolute #) 0.03 (0-0.4); Eosinophil % 10.5 % (0.00-5.0); Eosinophil (Absolute #) 1.08 (0-0.5); Hematocrit 45.9 % (42-50); Hemoglobin 16.2 gm/dl (12.5-18.0); Lymphocyte (Absolute #) 2.09 (1.0-4.6); Lymphocytes % 20.3 % (24.0-44.0); Mean Cell Volume 95.6 fl (78-100); Mean Corpuscular Hemoglobin 33.8 pg (26-32); Mean Corpuscular Hgb Concent. 35.3 g/dl (32-36); Mean Platelet Volume 9.6 fl (7.5-11.0); Monocyte (Absolute #) 0.65 (0.0-1.3); Monocytes % 6.3 % (0.0-12.0); Neutrophil % 62.6 % (36.0-66.0); Platelet Count 265 K/mm3 (150-450); Red Cell Distribution Width 13.2 % (11.5-14.0); White Blood Count 10.3 K/mm3 (4.0-10.5)
[2020-12-15 17:47] LABS: ALBUMIN 4.6 g/dL (3.5-5.0); ALKALINE PHOSPHATASE 69 U/L (38-126); ANION GAP 14.2 MEQ/L (5-15); BLOOD UREA NITROGEN 10 mg/dL (9-20); CHLORIDE 106 mmol/L (98-107); Calcium 10.6 mg/dL (8.4-10.2); Carbon Dioxide 22 mmol/L (22-30); Creatinine 1 0.71 mg/dL (0.66-1.25); EST GLOMERULAR FILTRATION RATE > 60.0 ML/MIN; Glucose 95 mg/dL (74-106); Potassium 4.4 mmol/L (3.5-5.1); SGOT/AST 30 U/L (17-59); SGPT/ALT 38 U/L (0-50); SODIUM 138 mmol/L (137-145); Total Protein 7.7 g/dL (6.3-8.2)
[2020-12-15] MEDS: ENOXAPARIN SODIUM SQ SCH (18:39)
[2020-12-15] MEDS ORDERED: VANCOMYCIN 1.25 GM/250 ML BAG 1.25 GM/250 ML PIGGYBACK IV ONE (18:44)
[2020-12-15] MEDS: VANCOMYCIN 1.25 GM/250 ML BAG 1.25 GM/250 ML PIGGYBACK IV SCH (19:05)
[2020-12-15] MEDS: Zosyn INJ 4.5 GM in Sodium Chloride 100ML MINI-BAG PLUS 100 ML IV SCH (22:51)
[2020-12-15] MEDS: ULTRAM 50 MG PO PRN (23:03)
[2020-12-16 00:09] LABS: Appearance CLEAR (CLEAR); Bilirubin NEGATIVE (NEGATIVE); Blood NEGATIVE Ery/ul (0-5); Glucose NEGATIVE (NEGATIVE); Ketones NEGATIVE (NEGATIVE); Leukocyte Esterase NEGATIVE (NEGATIVE); Mucus SLIGHT /HPF (NEGATIVE); Nitrite NEGATIVE (NEGATIVE); Protein,Urine Dip NEGATIVE (Negative); Specific Gravity 1.006 (1.005-1.025); Urobilinogen NEGATIVE mg/dL (0-1)
[2020-12-16 05:21] LABS: Hematocrit 43.5 % (42-50); Hemoglobin 15.2 gm/dl (12.5-18.0); Mean Cell Volume 96.9 fl (78-100); Mean Corpuscular Hemoglobin 33.9 pg (26-32); Mean Corpuscular Hgb Concent. 34.9 g/dl (32-36); Mean Platelet Volume 10.4 fl (7.5-11.0); Platelet Count 220 K/mm3 (150-450); Red Blood Count 4.49 M/mm3 (4.1-5.6); Red Cell Distribution Width 13.5 % (11.5-14.0); White Blood Count 8.8 K/mm3 (4.0-10.5)
[2020-12-16 05:58] LABS: Erythrocyte Sedimentation Rate 5 mm/hr (0-15)
[2020-12-16 06:17] LABS: ANISOCYTOSIS 1+; Eosinophil 12 % (0.00-3.0); Lymphocytes 37 % (24-44); Macrocytosis 1+; Monocyte 5 % (0.0-12.0); Neutrophils 46 % (36.-66.); Platelet Estimate NORMAL (NORMAL); Total Cells Counted 100
[2020-12-16] MEDS: TYLENOL 325 MG PO PRN ×2 (06:24→12:24)
[2020-12-16] MEDS: Zosyn INJ 4.5 GM in Sodium Chloride 100ML MINI-BAG PLUS 100 ML IV SCH ×3 (07:14→21:33)
--- NOTE | 2020-12-16 08:40 | XRAY ---
Indication: Pulmonary embolus. Left arm "blood clot." Multiple contiguous axial images obtained through the chest using 100 cc Isovue 370 contrast and PE protocol. Comparison: None There is good opacification of the pulmonary arteries to include the lobar and segmental branches. No pulmonary embolus. Heart not enlarged. Aorta is normal in course and caliber. No pathologic mediastinal/hilar lymphadenopathy. Lungs inflated with moderate pulmonary emphysema, small bilateral upper upper lobe calcified granulomas, and minimal bilateral dependent atelectasis. No suspicious pulmonary mass, infiltrate, or effusion. Bony bone windows reveal a remote-appearing L1 compression fracture with approximately 25% height loss. Limited upper abdomen demonstrates cholecystectomy clips. Impression: 1. Negative pulmonary embolus. No acute cardiopulmonary abnormalities. 2. Incidental pulmonary emphysema, remote L1 compression fracture, and old granulomatous disease.
--- NOTE | 2020-12-16 08:48 | HP ---
CHIEF COMPLAINT: Left arm swelling and pain. HISTORY OF PRESENT ILLNESS: The patient is a 40 year-old white male patient who had been in the hospital for a surgical procedure after which his arm began swelling and has been increasing in swelling over the past few days. He was seen by Dr. Jenkins postoperatively and was felt to need to be admitted to the hospital for cellulitis of the left arm. PAST MEDICAL/SURGICAL HISTORY: Otherwise unsignificant. 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 He takes aspirin 81 mg a day. He has been on omeprazole 40 mg q.d. ALLERGIES: NKDA. FAMILY HISTORY: The patient reports that there is no family history of blood clots in his family. He personally has never had problems with this either. PHYSICAL EXAMINATION: The patient's vital signs on admission showed his temperature to be 98.6F, pulse 76, respiratory rate 16 and blood pressure 113/62. HEENT: Normocephalic, atraumatic. Pupils equal round reactive to light. Extraocular movements intact. Oropharynx is pink and moist. NECK: Supple without lymphadenopathy, thyromegaly or JVD. CHEST: Clear to auscultation. HEART: Regular rate and rhythm without murmurs, rubs or gallops heard. ABDOMEN: Soft. No palpable masses. EXTREMITIES: Without cyanosis, clubbing or edema. NEUROLOGIC: The patient is alert and oriented x3. There is on the left arm noted from the IV site posterior portion of his hand upwards to his shoulder there is significant swelling. There is however no warmth and there is minimal redness noted in this area. LAB DATA AND TESTS: His white count is 8,800, hemoglobin 15.2, PLT count 220,000. Sedimentation rate was 5. His UA was normal. He has blood cultures x2 pending. His initial white count was 10,300. He had an increase of eosinophils of 10.5 but otherwise was unremarkable. His neutrophil count was only 62.6%. His metabolic panel was essentially normal other than a slight elevation of calcium at 10.6. Sed rate initially was 10. His COVID test was negative. We performed a CT with pulmonary embolism protocol of the chest which this far is unofficially read but appears to be negative. We are rechecking his legs for deep vein thrombosis but again they feel essentially normal as well. ASSESSMENT: The patient has been admitted for IV Vancomycin and Zosyn. He was also given Tylenol and Tramadol as needed for pain. He was given a regular diet and allowed to ambulate. We placed him on Lovenox 40 mg subcu for deep vein thrombosis prevention. At this time we will observe the patient for another 24 hours but if we do not see any increase his white count, sed rate, warmth, redness or fever, it is felt the patient can go home with blood thinner for a few more days but the patient has been negative for any evidence of deep vein thrombosis.
[2020-12-16] MEDS ORDERED: NON-FORMULARY ITEM (Omeprazole [Omeprazole] 40 MG Capsule.Dr) PO SCH (10:00)
[2020-12-16] MEDS: VANCOMYCIN 1.25 GM/250 ML BAG 1.25 GM/250 ML PIGGYBACK IV SCH ×3 (10:11→22:09)
[2020-12-16] MEDS: ENOXAPARIN SODIUM SQ SCH (10:11)
[2020-12-16] MEDS: Protonix 40MG Tablet PO SCH (10:12)
--- NOTE | 2020-12-16 10:45 | XRAY ---
Indication: Positive Homans sign. Two-dimensional sonogram and color Doppler imaging of the major venous vessels of the left and right leg performed. Comparison: None No thrombus seen in the examined deep venous vessels of the left and right leg including greater saphenous vein. Veins demonstrate normal compressibility. Venous waveforms are normal with and without augmentation. Impression: Left and right legs negative for DVT.
[2020-12-16] MEDS: ULTRAM 50 MG PO PRN (18:47)
[2020-12-17 00:28] VITALS: PULSE 70
[2020-12-17 05:30] LABS: Hematocrit 43.4 % (42-50); Hemoglobin 15.1 gm/dl (12.5-18.0); Mean Cell Volume 96.7 fl (78-100); Mean Corpuscular Hemoglobin 33.6 pg (26-32); Mean Corpuscular Hgb Concent. 34.8 g/dl (32-36); Mean Platelet Volume 9.5 fl (7.5-11.0); Platelet Count 207 K/mm3 (150-450); Red Blood Count 4.49 M/mm3 (4.1-5.6); Red Cell Distribution Width 13.1 % (11.5-14.0); White Blood Count 7.4 K/mm3 (4.0-10.5)
[2020-12-17] MEDS: Zosyn INJ 4.5 GM in Sodium Chloride 100ML MINI-BAG PLUS 100 ML IV SCH (06:03)
[2020-12-17] MEDS: TYLENOL 325 MG PO PRN (06:11)
[2020-12-17] MEDS: VANCOMYCIN 1.25 GM/250 ML BAG 1.25 GM/250 ML PIGGYBACK IV SCH (06:44)
[2020-12-17 07:12] VITALS: BP 116/59; O2SAT 95
[2020-12-17] MEDS: Protonix 40MG Tablet PO SCH (09:28)
--- NOTE | 2020-12-17 10:44 | DS ---
DISCHARGE DIAGNOSIS: THROMBOPHLEBITIS OF THE LEFT UPPER EXTREMITY. HOSPITAL COURSE: The patient is a 40 year-old white male patient who underwent laparoscopic cholecystectomy which went well. The patient was seen in follow up by Dr. Jenkins and he was noted to have swelling in the arm and concern for venous thrombosis and cellulitis. The patient was admitted to the hospital on IV Vancomycin and Zosyn and by the time I examined him there was no real redness or warmth at the site. He was afebrile. His CBC showed no significant increase in his white cell count and essentially normal differential. The patient was instructed to keep the arm elevated. We monitored him for the next couple of days and he seemed to be doing well. He was also getting Lovenox for deep vein thrombosis prophylaxis. He had a CT scan of the chest with pulmonary embolism protocol which was negative. He also had bilateral lower extremity venous Doppler's as well which showed no evidence of deep vein thrombosis. The patient by 12/18/2020, was felt to be ready for discharge home. He was given Bactrim DS 1 tablet twice a day for an additional seven days and placed on Eliquis 2.5 mg b.i.d. He was treated with Lovenox in the hospital. The patient is doing well. He was instructed to stay off work for another week, to keep the arm elevated above his heart as much as possible. We will see him in the office in the next five days to see if he could return to work at that time. He is instructed to call if he has any increase in problems of any kind in the meantime.
[2020-12-17] MEDS ORDERED: TROUGH DRUG LEVELS IJ ONE (13:30)
== END 2020-12-17 10:10 | disposition home or self-care (01) ==
LOC: UNDOADMOB 13:13 → MED SURG 13:13
PROVIDERS: ADMIT Family Medicine; ATTEND Family Medicine
DX: I80.8 Phlebitis and thrombophlebitis of other sites (principal); R29.898 Other symptoms and signs involving the musculoskeletal system; M79.89 Other specified soft tissue disorders; M79.602 Pain in left arm; Z20.822 Contact with and (suspected) exposure to COVID-19; Z98.890 Other specified postprocedural states; Z79.899 Other long term (current) drug therapy
CPT/HCPCS: 36415; 71260; 80053; 81001; 85025; 85027; 85652; 87040; 93970; G0378; U0003; J1650; J2543; A9270-GY; J3370